=== PATIENT | female | born 2000 | race Hispanic/Latino ===

== ENCOUNTER 2024-09-22 22:35 | Emergency (ER) | payer OTHER, SELFPAY ==
[2024-09-22 22:39] VITALS: BP 130/88
[2024-09-23 01:50] VITALS: BMI 25.4
--- NOTE | 2024-09-23 01:50 | EDRN ---
Pt says she was washing dishes and something happened to her R eye and she was told she had an ocular migraine. Pt saw 'stuff moving' in her R eye. Symptom went away 10 minutes after started. Head pain started few minutes after eye symptoms. Pt
had head pain for few hours, did not take anything for pain area captain. No pain now. Pt was dizzy initially but not now. No n/v, fever/chills/cough. No hx of similar symptoms.
[2024-09-23 01:54] VITALS: BP 112/73
--- NOTE | 2024-09-23 02:01 | EDRN ---
Pt informed of delay to being seen by provider and said she wants to go home because she is symptom free. Dr Boyd was informed pt leaving without treatment and said he would go see her.
--- NOTE | 2024-09-23 02:03 | ED.GENMED ---
History of Present Illness
General
Chief Complaint: Headache
Source: patient
Exam Limitations: none
Time Seen by Provider: 09/23/24 02:00
Nursing documentation reviewed up to this point in time: agreed with
History of Present Illness
History of Present Illness:
24-year-old female presents emergency department. She states that she was at work at [employer] and started to have blurry vision in her right eye. That lasted approximately 10 minutes. Patient then proceeded to have a mild headache. She states
that the blurry vision resolved after 10 minutes but the headache persisted until she got here and then resolved. Patient states that after triage the headache went away completely. Patient currently has no symptoms. Patient wishes to be
discharged. She has no complaints called
Review of Systems
Review of Systems
Allergies reviewed?: Yes
All Other Systems: ROS reviewed and negative except as documented in HPI and ROS
Neurological: Reports headache; Denies dizzy or numbness
Psychiatric: Reports anxiety
Phy Exam
General Physical Exam
General Presentation: well appearing and no apparent distress
General Skin: warm and dry
General Habitus: normal
General Mental: alert
General Hydration: appears well hydrated
ENT Exam
ENT Exam: EOMI, pharynx normal, neck supple and normocephalic
Eye Exam
Eye Exam: PERRL, cornea clear and conjunctiva normal
Cardiovascular Exam
Cardiovascular Exam: regular rate/rhythm, no edema, no murmur and normal peripheral pulses
Pulmonary Exam
Pulmonary Exam: lungs clear, no respiratory distress, no rales, no crackles, no rhonchi, no stridor, no wheezing and no cough
Gastrointestinal Exam
Gastrointestinal Exam: normal bowel sounds, non tender, soft, no organomegaly, no pulsatile mass and non distended
Neurological Exam
Neurological Exam: alert, oriented x3, no motor deficits and speech normal
Barbara Coma Scale
Eye Opening: Spontaneous
Verbal Response: Oriented
Motor Response: Obeys Commands
GCS Total Score: 15
Mental
Mental Status: oriented to person, oriented to place, oriented to time and usual mental status
Describe Speech: normal speech
Cranial
Cranial Nerves: normal and no facial asymetry
EOM (CN3/4/6): intact and other (No vertical or horizontal nystagmus. Normal tracking.)
Motor
Seizure Activity: none
Gait: normal
Tremors: none
Other Movement Disorders: none
Cerebellar
Cerebellar Function: normal finger to nose
Musculoskeletal Exam
Musculoskeletal Exam: full ROM and no edema
Skin Exam
Skin Exam: normal color, warm/dry, no rash and no petechia
Psychiatric Exam
Psychiatric Exam: normal mood/affect
Course
Orders/Labs/Results
Orders:
09/23/24 00:15
09/23/24 00:15
Vital Signs
Initial and Last Documented VS:
Initial Vital Signs
Temp Pulse Resp BP Pulse Ox
97.9 F 77 16 130/88 98
09/22/24 22:39 09/22/24 22:39 09/22/24 22:39 09/22/24 22:39 09/22/24 22:39
Last Documented Vital Signs
Temp Pulse Resp BP Pulse Ox
97.9 F 70 14 112/73 100
09/22/24 22:39 09/23/24 01:54 09/23/24 01:54 09/23/24 01:54 09/23/24 01:54
*Radiology
Radiology exam reviewed: other (Patient deferred)
*Critical Care Note
Total Time (30-74mins, 75-104mins- exclusive of procedures): Not Applicable
Update Note
Update Note:
Patient wishes to be discharged. She did not have imaging. She states that she is asymptomatic and has been for the last few hours patient understands that without imaging a diagnosis may be missed. She is however being discharged in improved
condition.
ED Attending Note
-
Portions of this chart may have been created with voice recognition software.� Occasional wrong word or��sound alike� substitutions may have occurred due to the inherent limitations of voice recognition software.
Discharge Plan
Departure
Patient Disposition: Home (Routine Discharge)
Date of Disposition: 09/23/24
Time of Disposition: 02:06
Patient with high blood pressure during this ER visit?: No
Discharge Problem:
Blurred vision, Headache
Instructions: Headache, Adult (DC)
Prescriptions:
No Action
No Current Medications
0
Referrals:
Juma Cabral MD [Active] -
Activity Restrictions/Additional Instructions:
Thank You for choosing [facility] [address].
It was a pleasure meeting you and taking part in your care. We hope for your continued healing and wellness.
Please read discharge instructions in their entirety. However, they are for general education and may not describe your exact diagnosis at discharge. Information on your ER visit and medical conditions were discussed with you along with appropriate
follow up information...
If indicated, please take your medications as instructed and indicated on discharge paperwork.
Please schedule a follow up appointment as directed. Call to schedule an appointment
Please return to the emergency department with ANY change in, persisting, or worsening of symptoms. If any of your symptoms do not improve, or persist, or become more severe within 6-12 hours, please return to the emergency department for further
care.
Please return to the emergency department if you develop a headache, neck pain/stiffness, fever greater than 100.4F, chest pain, shortness of breath, persistent nausea, vomiting, slurred speech, difficulty walking, numbness/tingling, weakness, signs
of infection or any other symptoms that are worrisome to you.
If you have any questions or concerns please do not hesitate to call the Hospital at
Interventions
Interventions:
*Risk Screen - Suicide Last Done: 09/22/24 22:39
*General Assessment Last Done: 09/22/24 22:39
*Neglect/Abuse Screening Last Done: 09/22/24 22:39
*ED- Fall Risk Assessment Last Done: 09/22/24 22:39
*ED COVID-19 Vaccine History Last Done: 09/22/24 22:39
ED- Neurological Assessment Last Done: 09/23/24 01:58
Discharge Date and Time
Print Language: MALTESE
== END 2024-09-23 02:30 | disposition home or self-care (01) ==
LOC: EMR 22:35
PROVIDERS: EMERGENCY PHYSICIAN Student in an Organized Health Care Education/Training Program
DX: H53.8 Other visual disturbances (principal); R51.9 Headache, unspecified
CPT/HCPCS: 99282